=== PATIENT | female | born 1945 | race Caucasian/White ===

== ENCOUNTER 2025-05-16 15:35 | Emergency (ER) | payer MEDICARE, OTHER, SELFPAY ==
[2025-05-16] VITALS (22 sets, daily range): BP systolic 134–171; BP diastolic 62–78; PULSE 61–68; RESP 8–21; TEMP 36.7; O2SAT 92–97; BMI 30.1
--- NOTE | 2025-05-16 16:14 | EKG_ITS ---
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
--- NOTE | 2025-05-16 16:14 | DI.RAD.S_ITS ---
PROCEDURE: XR CHEST 1V INDICATIONS: Chest Pain TECHNIQUE: One view of the chest was acquired. COMPARISON: None. FINDINGS: Surgical changes and devices: None. Lungs and pleura: Lungs are clear. No pleural effusions or pneumothorax. Mediastinum: Mediastinal contours appear normal. Heart size is normal. Bones and chest wall: No suspicious bony lesions. Overlying soft tissues appear unremarkable. IMPRESSION: No acute cardiopulmonary abnormality is seen. Dictated by: Roland Prince M.D. on 05/16/2025 at 16:57 Approved by: Roland Prince M.D. on 05/16/2025 at 16:57
[2025-05-16 16:53] LABS: Add Manual Diff / Slide Review NO; Hematocrit 38.2 % (36-46); Hemoglobin 12.7 g/dL (12.0-16.0); Lymphocytes Absolute Auto 2900 /uL (1100-4500); Mean Corpuscular HGB Conc 33.3 % (30-36); Mean Corpuscular Hemoglobin 30.8 PG (26-34); Mean Corpuscular Volume 92.5 fL (80-100); Platelet Count 369 X10^3/uL (150-400)
[2025-05-16 17:00] LABS: INR 1.3 (0.9-1.3); Prothrombin Time 15.2 SECONDS (9.4-12.5)
[2025-05-16 17:03] LABS: PTT Partial Thromboplastin Tim 34 SECONDS (25.1-36.5)
[2025-05-16 17:05] LABS: Alanine Aminotransferase 23 IU/L (<35); Albumin 4.7 g/dL (3.5-5.0); Albumin Globulin Ratio 1.3 (1.0-2.8); Alkaline Phosphatase 94 U/L (38-126); Blood Urea Nitrogen 25 mg/dL (7-17); Calcium 8.9 mg/dL (8.4-10.2); Carbon Dioxide 20 mmol/L (22-32); Chloride 107 mmol/L (98-107); Creatine Kinase 108 U/L (30-135); Estimated Glomerular Filt Rate > 60 mL/min (>60); Globulin 3.5 g/dL (1.7-4.1); Glucose 98 mg/dL (70-99); Lipase 169 U/L (23-300); Magnesium 2.0 mg/dL (1.6-2.3); Sodium 138 mmol/L (137-145); Total Protein 8.2 g/dL (6.3-8.2)
[2025-05-16 17:07] LABS: HEMOLYSIS 52 (0-50); Potassium 4.3 mmol/L (3.4-5.1)
[2025-05-16 17:16] LABS: NT-proBNP (BNP-Adult 18+) 154 pg/mL (<450); Troponin I 0.037 ng/mL (0.01-0.034)
--- NOTE | 2025-05-16 18:06 | PC.NURSE ---
Pt states she is chest pain free. Also able to ambulate on own to restroom with steady gait
--- NOTE | 2025-05-16 18:35 | ED_ITS ---
HPI - Chest Pain General Chief Complaint: Chest Pain Stated Complaint: [facility] ref - chest & jaw pn w/PEREZ Time Seen by Provider: 05/16/25 18:35 Source: patient Mode of arrival: Ambulatory Limitations: no limitations History of Present Illness HPI narrative: 79-year-old female with no known coronary artery disease but multiple cardiac risk factors (hypertension, hyperlipidemia, former smoker, family history) recalls chemical cardiac stress test and echocardiogram about 1 year ago fall 2023 at outside facility, early this morning [id number] had anterior discomfort but then decided to go to bed and did not seek medical care, awakened 0730 without chest pain, had recurrence of chest pain at rest 12:30 p.m. today that resolved about 1 hour prior to triage here. No associated nausea or vomiting or diaphoresis. Some radiation to the jaw. No cough, fevers, shortness of breath. No trauma injury or new activities. She takes no chronic blood thinner medications. Related Data Allergies Allergy/AdvReac Type Severity Reaction Status Date / Time No Known Drug Allergies Allergy Verified 05/16/25 16:07 Patient History Social History Smoking Status: Former smoker Smoking Status: Former smoker Exam Narrative Exam Narrative: GENERAL: Well-developed patient, in mild distress. HEAD: Atraumatic. Normocephalic. EYES: Pupils equal round and reactive. Extraocular motions intact. No scleral icterus. No injection or drainage. ENT: Nose without bleeding, purulent drainage. Throat without erythema, tonsillar hypertrophy or exudate. Airway patent. NECK: Trachea midline. Non tender CARDIOVASCULAR: Regular rate and rhythm without murmurs, gallops, or rubs. RESPIRATORY: Clear to auscultation. Breath sounds equal bilaterally. No wheezes, rales, or rhonchi. GASTROINTESTINAL: Abdomen soft, non-tender, nondistended. EXTREMITIES: No edema or joint tenderness. BACK: Nontender without deformity or crepitance. No flank tenderness. NEURO: AOx3. Motor functions grossly nonfocal. SKIN: No rash or erythema of visible areas Initial Vital Signs Initial Vital Signs: Vital Signs Temperature 98.0 F 05/16/25 16:06 Pulse Rate 63 05/16/25 16:06 Respiratory Rate 16 05/16/25 16:06 Blood Pressure 141/64 H 05/16/25 16:06 Pulse Oximetry 97 05/16/25 16:06 Oxygen Delivery Method Room Air 05/16/25 16:06 Scores HEART Score Heart Score history: Moderately Suspicious Heart Score EKG: Normal Heart Score Age: > or = 65 years old Heart Score risk factors: > 3 risk factors or hx of atherosclerotic disease Heart Score troponin: < or = to normal limit Heart Score Total: 5 Course Orders Ordered: ED Orders 05/16/25 19:23 CT abdomen pelvis w con Stat CT angio chest PE protocol Stat 05/16/25 21:15 Troponin I Stat Discontinued Medications Aspirin (Aspirin 81 Mg Chew Tab) 324 mg PO NOW ONE Stop: 05/16/25 16:15 Last Admin: 05/16/25 17:52 Dose: Not Given Documented By: JENNIFER Aspirin (Aspirin 81 Mg Chew Tab) 324 mg PO NOW ONE Stop: 05/16/25 19:05 Last Admin: 05/16/25 19:14 Dose: 324 mg Documented By: JENNIFER Heparin Sodium (Porcine) (Heparin 5,000 Unit/Ml Vial) 4,500 unit 60 unit/kg (4500 unit) IV NOW ONE Stop: 05/16/25 21:53 Last Admin: 05/16/25 22:28 Dose: 4,500 unit Documented By: MIRIAM Heparin Sodium/Dextrose (Heparin Drip) 25,000 unit in 500 mls @ 18.507 mls/hr IV CONT HUBERT; Protocol Last Admin: 05/16/25 22:25 Dose: 12 units/kg/hr, 18.507 mls/hr Documented By: MIRIAM Co-signed By: DILMA Vital Signs Vital signs: Vital Signs - 8 hr 05/16/25 20:30 05/16/25 21:13 05/16/25 21:14 Pulse Rate 66 65 Respiratory Rate 17 16 Blood Pressure 141/65 H Pulse Oximetry 92 05/16/25 21:14 05/16/25 21:30 05/16/25 22:00 Pulse Rate 65 62 63 Respiratory Rate 19 17 17 Blood Pressure Pulse Oximetry 05/16/25 22:01 05/16/25 22:01 05/16/25 22:30 Pulse Rate 63 Respiratory Rate 17 Blood Pressure 157/74 H 171/77 H Pulse Oximetry 05/16/25 22:30 05/16/25 23:00 05/16/25 23:00 Pulse Rate 64 65 Respiratory Rate 17 18 Blood Pressure 152/73 H Pulse Oximetry 92 05/16/25 23:30 05/16/25 23:31 05/16/25 23:31 Pulse Rate 67 64 Respiratory Rate 19 16 Blood Pressure 160/62 H Pulse Oximetry 93 93 05/17/25 00:00 Pulse Rate 67 Respiratory Rate 19 Blood Pressure Pulse Oximetry 96 MDM - Chest Pain Lab Data Attestation: I reviewed the patient's lab results. Lab results narrative: White blood cell count 47626, hemoglobin 12.7, platelets adequate. Glucose 98. BUN 25 with creatinine 0.88 unremarkable renal function. Serum CO2 20 slight low, normal electrolytes. Slight AST elevation, other liver functions normal. Lipase normal. Troponin 0.037 mildly measurable indeterminate range. BNP normal. 05/16/25 16:44 05/16/25 16:44 Labs: Lab Results 05/16/25 05/16/25 05/16/25 Range/Units 16:44 18:40 21:15 WBC 10.8 (4.5-11.0) X10^3/uL RBC 4.13 (4.0-5.2) X10^6/uL Hgb 12.7 (12.0-16.0) g/dL Hct 38.2 (36-46) % MCV 92.5 (80-100) fL MCH 30.8 (26-34) PG MCHC 33.3 (30-36) % RDW 16.8 H (11.6-14.8) % Plt Count 369 (150-400) X10^3/uL Neut % (Auto) 57.6 (50-75) % Lymph % (Auto) 26.6 (25-40) % [place] % (Auto) 14.8 H (3-14) % Eos % (Auto) 0.4 L (2-4) % Baso % (Auto) 0.6 (0-2) % Neut # (Auto) 6300 (8849-2093) /uL Lymph # (Auto) 2900 (0575-6628) /uL [place] # (Auto) 1600 H (0-900) /uL Eos # (Auto) 0 (0-450) /uL Baso # (Auto) 100 (0-100) /uL PT 15.2 H (9.4-12.5) SECONDS INR 1.3 (0.9-1.3) APTT 34 (25.1-36.5) SECONDS Sodium 138 (137-145) mmol/L Potassium 4.3 (3.4-5.1) mmol/L Chloride 107 (98-107) mmol/L Carbon Dioxide 20 L (22-32) mmol/L BUN 25 H (7-17) mg/dL Creatinine 0.88 (0.52-1.04) mg/dL Estimated GFR > 60 (>60) mL/min BUN/Creatinine Ratio 28.4 H (6-22) Glucose 98 (70-99) mg/dL Calcium 8.9 (8.4-10.2) mg/dL Magnesium 2.0 (1.6-2.3) mg/dL Total Bilirubin 0.4 (0.2-1.3) mg/dL AST 37 H (14-36) IU/L ALT 23 (<35) IU/L Alkaline Phosphatase 94 (38-126) U/L Total Creatine Kinase 108 (30-135) U/L Troponin I 0.037 H 0.061 H 0.236 H* (0.01-0.034) ng/mL NT-Pro-B Natriuret Pep 154 (<450) pg/mL Total Protein 8.2 (6.3-8.2) g/dL Albumin 4.7 (3.5-5.0) g/dL Globulin 3.5 (1.7-4.1) g/dL Albumin/Globulin Ratio 1.3 (1.0-2.8) Lipase 169 (23-300) U/L Imaging Data Chest x-ray: Radiologist's Impression: [address] [address] XRay Report Signed Patient: Elisha Choi MR#: [id number] : 1945 Acct:[id number] Age/Sex: 79 / F Date of Service: 05/16/25 Loc: ED Accession Number: [id number] Procedure: XR chest 1V Ordering Provider: Carmelo Romano MD PROCEDURE: XR CHEST 1V INDICATIONS: Chest Pain TECHNIQUE: One view of the chest was acquired. COMPARISON: None. FINDINGS: Surgical changes and devices: None. Lungs and pleura: Lungs are clear. No pleural effusions or pneumothorax. Mediastinum: Mediastinal contours appear normal. Heart size is normal. Bones and chest wall: No suspicious bony lesions. Overlying soft tissues appear unremarkable. IMPRESSION: No acute cardiopulmonary abnormality is seen. Dictated by: Roland Prince M.D. on 05/16/2025 at 16:57 Approved by: Roland Prince M.D. on 05/16/2025 at 16:57 CTA PE protocol: Radiologist's Impression: [address] [address] [address] Scan Report Signed Patient: Elisha Choi MR#: [id number] : 1945 Acct:[id number] Age/Sex: 79 / F Date of Service: 05/16/25 Loc: ED Accession Number: [id number] Procedure: CT angio chest PE protocol Ordering Provider: Dileep Kern MD PROCEDURE: CT ANGIO CHEST PE PROTOCOL INDICATIONS: chest pain, elev trop, eval for PE TECHNIQUE: After the administration of intravenous contrast, 2 mm thick sections acquired from the pulmonary apices to the posterior costophrenic angles. 3-dimensional maximum intensity projection (MIP) coronal and sagittal reformats were then acquired through the thorax. For radiation dose reduction, the following was used: automated exposure control, adjustment of mA and/or kV according to patient size. COMPARISON: [facility], CT, CT ABDOMEN PELVIS W CON, 05/16/2025, 19:53. FINDINGS: Image quality: Diagnostic. Pulmonary arteries: Pulmonary arteries are normal in size, and demonstrate no intraluminal filling defects to suggest central pulmonary embolism. Lower Neck: No enlarged lymph nodes. Thyroid: No thyroid nodules which require sonographic follow up, per consensus guidelines. Axillae: No enlarged lymph nodes. Chest Wall: Unremarkable. Bones: No suspicious osseous lesion. Prior left-sided rib fractures. Lungs and Pleura: No pneumothorax or pleural effusions. Interlobular septal thickening. Scattered ground-glass opacity. A few areas of distal mucus airway plugging. Heart: Heart size is normal. No pericardial effusion. Thoracic Vessels: No aortic aneurysm. Mediastinum and Ashtyn: No enlarged lymph nodes. Esophagus: No wall thickening. Small to moderate size hiatal hernia. Upper Abdomen: Visualized upper abdomen solid organs and bowel loops appear normal. Gallbladder is absent. IMPRESSION: 1. No pulmonary embolism. 2. Interlobular septal thickening and scattered ground-glass opacity. Findings could be due to pulmonary edema or interstitial lung disease. No pleural effusion. Dictated by: Tom Gamboa M.D. on 05/16/2025 at 21:14 Approved by: Tom Gamboa M.D. on 05/16/2025 at 21:21 CT scan - abdomen/pelvis: Radiologist's Impression: [address] [address] [address] Scan Report Signed Patient: Elisha Choi MR#: [id number] : 1945 Acct:[id number] Age/Sex: 79 / F Date of Service: 05/16/25 Loc: ED Accession Number: [id number] Procedure: CT abdomen pelvis w con Ordering Provider: Dileep Kern MD PROCEDURE: CT ABDOMEN PELVIS W CON INDICATIONS: chest pain, eval subdiaph source TECHNIQUE: After the administration of intravenous contrast, axial sections acquired from the lung bases to the pubic symphysis. Coronal and sagittal reformats were performed. For radiation dose reduction, the following was used: automated exposure control, adjustment of mA and/or kV according to patient size. COMPARISON: Outside Film, MR, MR LUMBAR SPINE WITHOUT CONTRAST, 07/11/2024, 13:00. [facility], CT, CT ANGIO CHEST PE PROTOCOL, 05/16/2025, 19:53. FINDINGS: Image quality: Diagnostic. Lower Chest: Small to moderate hiatal hernia. No pleural effusion. ABDOMEN: Liver: No solid mass. Gallbladder: No radiopaque gallstones or wall thickening. Biliary ducts: No biliary dilation. Pancreas: No ductal dilation. Small cyst in the body of the pancreas measuring 1.1 cm, (4/41). Spleen: Size is within normal limits. Adrenal Glands: No adrenal nodules. Kidneys and Ureters: No hydronephrosis. No solid mass. No complex renal cystic lesion which requires follow up. Stomach and Bowel: Normal colonic caliber, without significant wall thickening. Diverticulosis. No diverticulitis. Appendix. Peritoneum: No abnormal intraperitoneal fluid. No free air. Ventral Wall: No significant ventral hernia. Abdominal Nodes: No retroperitoneal or mesenteric adenopathy by size criteria. Vessels: Aorta and inferior vena cava are normal in size. Calcified atherosclerotic plaque. PELVIS: Pelvic Organs: Uterus is absent. Bladder: No bladder wall thickening. Pelvic Nodes: No enlarged lymph nodes. Miscellaneous: No inguinal hernias are seen. Bones: No aggressive osseous abnormality. DDD. IMPRESSION: 1. No acute inflammatory process is identified. No free fluid. 2. Small to moderate-sized hiatal hernia. 3. Incidental small cyst in the body of the pancreas measuring 1.1 cm. This could be a serous cyst or IPMN. -Recommend follow-up CT pancreas or MRI in 2 years. Dictated by: Tom Gamboa M.D. on 05/16/2025 at 21:21 Approved by: Tom Gamboa M.D. on 05/16/2025 at 21:29 ECG Data Attestation: I personally reviewed and interpreted this ECG as follows: Interpretation: 1614, normal sinus rhythm with rate of 63, no obvious ST segment elevation or depression changes. Some wandering baseline artifact noted. Septal Q-waves noted. TN 196, QRS 82, QTC 462. 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 Screening EKG, chest x-ray, labs pending. Heart Score = 5 EKG shows sinus rhythm, no obvious ischemic changes. Some wandering baseline noted. CXR no acute changes. See radiology report. Lab data: White blood cell count [address], hemoglobin 12.7, platelets adequate. Glucose 98. BUN 25 with creatinine 0.88 unremarkable renal function. Serum CO2 20 slight low, normal electrolytes. Slight AST elevation, other liver functions normal. Lipase normal. Troponin 0.037 measurable indeterminate range. BNP normal. Interval repeat troponin 0.06 still indeterminate but rising. CTA chest ordered. Interval 3rd troponin ordered. Still chest pain free. We will give oral aspirin. CT angiogram chest, no PE. See radiology report. CT abdomen and pelvis showed no pancreatic lesion, hiatal hernia, otherwise no acute process. See radiology report. Serial 3rd troponin further elevated now 0.236. No evidence for PE. We will treat as non-STEMI, aspirin given prior, IV heparin bolus/infusion. Transfer to cardiac laundry laborer capable facility. 2315, discussed with hospitalist Kelle Palumbo, accepts patient for transfer on heparin. Core Measures AMI core measures followed: Yes Critical Care Time Critical Care Time Critical Care Time: Yes Total Critical Care Time: 35 Attestation: The high probability of a clinically significant, sudden or life threatening deterioration of the [cardiopulmonary] systems required my full and direct attention, intervention and personal management. The aggregate critical care time was [35] minutes. This time is in addition to time spent performing reported procedures but includes the following: [x] Data Review and interpretation [x] Patient assessment and monitoring of vital signs [x] Documentation [x] Medication orders and management Discharge Plan Departure Patient Disposition: [facility] Clinical Impression: Non-ST elevated myocardial infarction (non-STEMI), Pancreas cyst Referrals: Abel Garber MD [Primary Care Provider, Internal Medicine]
[2025-05-16 19:13] LABS: Troponin I 0.061 ng/mL (0.01-0.034)
[2025-05-16] MEDS: ASPIRIN 81 MG CHEW TAB 324 MG PO (19:14)
--- NOTE | 2025-05-16 19:23 | DI.CT.S_ITS ---
PROCEDURE: CT ABDOMEN PELVIS W CON INDICATIONS: chest pain, eval subdiaph source TECHNIQUE: After the administration of intravenous contrast, axial sections acquired from the lung bases to the pubic symphysis. Coronal and sagittal reformats were performed. For radiation dose reduction, the following was used: automated exposure control, adjustment of mA and/or kV according to patient size. COMPARISON: Outside Film, MR, MR LUMBAR SPINE WITHOUT CONTRAST, 07/11/2024, 13:00. [facility], CT, CT ANGIO CHEST PE PROTOCOL, 05/16/2025, 19:53. FINDINGS: Image quality: Diagnostic. Lower Chest: Small to moderate hiatal hernia. No pleural effusion. ABDOMEN: Liver: No solid mass. Gallbladder: No radiopaque gallstones or wall thickening. Biliary ducts: No biliary dilation. Pancreas: No ductal dilation. Small cyst in the body of the pancreas measuring 1.1 cm, (4/41). Spleen: Size is within normal limits. Adrenal Glands: No adrenal nodules. Kidneys and Ureters: No hydronephrosis. No solid mass. No complex renal cystic lesion which requires follow up. Stomach and Bowel: Normal colonic caliber, without significant wall thickening. Diverticulosis. No diverticulitis. Appendix. Peritoneum: No abnormal intraperitoneal fluid. No free air. Ventral Wall: No significant ventral hernia. Abdominal Nodes: No retroperitoneal or mesenteric adenopathy by size criteria. Vessels: Aorta and inferior vena cava are normal in size. Calcified atherosclerotic plaque. PELVIS: Pelvic Organs: Uterus is absent. Bladder: No bladder wall thickening. Pelvic Nodes: No enlarged lymph nodes. Miscellaneous: No inguinal hernias are seen. Bones: No aggressive osseous abnormality. DDD. IMPRESSION: 1. No acute inflammatory process is identified. No free fluid. 2. Small to moderate-sized hiatal hernia. 3. Incidental small cyst in the body of the pancreas measuring 1.1 cm. This could be a serous cyst or IPMN. -Recommend follow-up CT pancreas or MRI in 2 years. Dictated by: Tom Gamboa M.D. on 05/16/2025 at 21:21 Approved by: Tom Gamboa M.D. on 05/16/2025 at 21:29
--- NOTE | 2025-05-16 19:23 | DI.CT.S_ITS ---
PROCEDURE: CT ANGIO CHEST PE PROTOCOL INDICATIONS: chest pain, elev trop, eval for PE TECHNIQUE: After the administration of intravenous contrast, 2 mm thick sections acquired from the pulmonary apices to the posterior costophrenic angles. 3-dimensional maximum intensity projection (MIP) coronal and sagittal reformats were then acquired through the thorax. For radiation dose reduction, the following was used: automated exposure control, adjustment of mA and/or kV according to patient size. COMPARISON: [facility], CT, CT ABDOMEN PELVIS W CON, 05/16/2025, 19:53. FINDINGS: Image quality: Diagnostic. Pulmonary arteries: Pulmonary arteries are normal in size, and demonstrate no intraluminal filling defects to suggest central pulmonary embolism. Lower Neck: No enlarged lymph nodes. Thyroid: No thyroid nodules which require sonographic follow up, per consensus guidelines. Axillae: No enlarged lymph nodes. Chest Wall: Unremarkable. Bones: No suspicious osseous lesion. Prior left-sided rib fractures. Lungs and Pleura: No pneumothorax or pleural effusions. Interlobular septal thickening. Scattered ground-glass opacity. A few areas of distal mucus airway plugging. Heart: Heart size is normal. No pericardial effusion. Thoracic Vessels: No aortic aneurysm. Mediastinum and Ashtyn: No enlarged lymph nodes. Esophagus: No wall thickening. Small to moderate size hiatal hernia. Upper Abdomen: Visualized upper abdomen solid organs and bowel loops appear normal. Gallbladder is absent. IMPRESSION: 1. No pulmonary embolism. 2. Interlobular septal thickening and scattered ground-glass opacity. Findings could be due to pulmonary edema or interstitial lung disease. No pleural effusion. Dictated by: Tom Gamboa M.D. on 05/16/2025 at 21:14 Approved by: Tom Gamboa M.D. on 05/16/2025 at 21:21
[2025-05-16 21:52] LABS: Troponin I 0.236 ng/mL (0.01-0.034)
[2025-05-16] MEDS: HEPARIN DRIP 25,000 UNIT/500 ML IV.SOLN 18.507 UNIT IV (22:25)
[2025-05-16] MEDS: HEPARIN 5,000 UNIT/ML VIAL 4500 UNIT IV (22:28)
[2025-05-17] VITALS: PULSE 67; RESP 19; O2SAT 96
== END 2025-05-17 00:25 | disposition short-term general hospital (02) ==
PROVIDERS: Emergency Medicine; Emergency Provider Emergency Medicine; PCP Internal Medicine
DX: I21.4 Non-ST elevation (NSTEMI) myocardial infarction (principal); K86.2 Cyst of pancreas
CPT/HCPCS: 36415; 71045; 71275; 74177; 80053; 82550; 83690; 83735; 83880; 84484; 85025; 85610; 85730; 93005; 93010; 96374; 99284; 99291; J1644; Q9967